=== PATIENT | female | born 1970 | race Native Hawaiian/Other Pacific Islander ===

== ENCOUNTER → 2020-08-29 | Outpatient (CLI) | payer BC, OTHER ==
[~2020-08-29] MED LIST: ADIPEX PO; ADIPEX-P37.5 M1 OR; ENJUVIA1.25 MG PO; HYDR25TA60 PO; LISI20TA24 PO
== END ==
LOC: INF 16:38
PROVIDERS: ATTEND Internal Medicine
DX: Z23 Encounter for immunization (principal)
CPT/HCPCS: 96372

== ENCOUNTER 2020-09-22 12:35 | Outpatient (CLI) | payer BC, OTHER | END 2020-09-22 23:59 | disposition home or self-care (01) | LOC: INF 12:35 | PROVIDERS: ATTEND Internal Medicine | DX: Z23 Encounter for immunization (principal) | CPT/HCPCS: 96372 ==

== ENCOUNTER 2021-01-16 08:45 | Outpatient (CLI) | payer BC | END 2021-01-16 20:55 | disposition home or self-care (01) | LOC: RAD 08:45 | PROVIDERS: ATTEND Nurse Practitioner Family | DX: M79.671 Pain in right foot (principal) ==

== ENCOUNTER 2022-08-13 08:54 | Outpatient (CLI) | payer BC | END 2022-08-13 19:49 | disposition home or self-care (01) | LOC: MAMMO 08:54 | PROVIDERS: ATTEND Nurse Practitioner Family | DX: Z12.31 Encounter for screening mammogram for malignant neoplasm of breast (principal) ==